=== PATIENT | female | born 1970 | race Caucasian/White ===

== ENCOUNTER 2023-12-27 16:00 | Emergency (ER) | payer SELFPAY ==
[2023-12-27 16:04] VITALS: BP 155/95
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
== END 2023-12-27 17:51 | disposition home or self-care (01) ==
LOC: EMR 16:00
PROVIDERS: EMERGENCY PHYSICIAN Emergency Medicine; FAMILY PHYSICIAN Family Medicine
DX: S20.219A Contusion of unspecified front wall of thorax, initial encounter (principal); V49.40XA Driver injured in collision with unspecified motor vehicles in traffic accident, initial encounter
CPT/HCPCS: 99284; 71046; 93005